=== PATIENT | female | born 1995 | race African-American/Black ===

== ENCOUNTER 2017-09-26 10:28 | Emergency (ER) | payer MEDICAID ==
[~2017-09-26] VITALS: Ht 170.2 cm; Wt 104.0 kg
[2017-09-26 10:42] VITALS: BP 149/70
[2017-09-26 13:34] LABS: KETONES URINE NEGATIVE (NEGATIVE); LEUKOCYTE ESTERASE URINE 3+ (NEGATIVE); NITRITE URINE NEGATIVE (NEGATIVE); OCCULT BLOOD URINE 2+ (NEGATIVE); PH URINE 7.5 (4.5-8.0); PROTEIN URINE 1+ (NEGATIVE); SPECIFIC GRAVITY URINE 1.015 (1.005-1.030); UROBILINOGEN URINE 0.2 E.U./dL (0.2-1.0)
[2017-09-26 13:35] LABS: UCG SCREEN NEGATIVE
[2017-09-26 13:36] LABS: CLARITY URINE CLOUDY (CLEAR); COLOR URINE YELLOW (YELLOW)
== END 2017-09-26 15:13 | disposition home or self-care (01) ==
LOC: ER 13:28
DX: N30.90 Cystitis, unspecified without hematuria (principal)
CPT/HCPCS: 76770; 76830; 76856; 81001; 81025; 99285